=== PATIENT | female | born 1965 | race Caucasian/White ===

== ENCOUNTER 2023-06-28 08:03 | Outpatient (CLI) | payer OTHER | END 2023-06-28 08:04 | disposition home or self-care (01) | LOC: NUCLEAR 08:03 | PROVIDERS: ATTEND Physical Medicine & Rehabilitation | DX: M06.4 Inflammatory polyarthropathy (principal) ==

== ENCOUNTER → 2023-07-04 08:36 | Outpatient (CLI) | payer OTHER ==
[2023-07-05 14:06] LABS: CYCLIC CITRULLINE PEPTIDE < 2 units (0-19)
== END | disposition home or self-care (01) ==
LOC: LAB 08:36
PROVIDERS: ATTEND Physical Medicine & Rehabilitation
DX: M06.09 Rheumatoid arthritis without rheumatoid factor, multiple sites (principal)